=== PATIENT | male | born 1960 | race Caucasian/White ===

== ENCOUNTER → 2021-12-26 08:43 | Outpatient (CLI) | payer OTHER, SELFPAY ==
[2021-12-26 09:26] LABS: Add Manual Diff / Slide Review NO; Basophils Absolute Auto 100 /uL (0-100); Basophils Percent Auto 1.3 % (0-2); Eosinophils Absolute Auto 100 /uL (0-450); Eosinophils Percent Auto 0.7 % (2-4); Hematocrit 43.3 % (41-53); Hemoglobin 14.7 g/dL (13.5-17.5); Lymphocytes Absolute Auto 1400 /uL (1100-4500); Lymphocytes Percent Auto 21.1 % (25-40); Mean Corpuscular Hemoglobin 34.6 PG (26-34); Mean Corpuscular Volume 101.7 fL (80-100); Monocytes Absolute Auto 600 /uL (0-900); Monocytes Percent Auto 8.2 % (3-14); Neutrophils Absolute Auto 4700 /uL (1500-7000); Neutrophils Percent Auto 68.7 % (50-75); Platelet Count 235 X10^3/uL (150-400); Red Blood Cell Count 4.26 X10^6/uL (4.5-5.9); Red Cell Distribution Width 14.1 % (11.6-14.8); White Blood Cell Count 6.8 X10^3/uL (4.5-11.0)
[2021-12-26 09:43] LABS: Hemoglobin A1C% w Est Avg Glu 5.1 % (4.0-6.0)
[2021-12-26 09:45] LABS: Alanine Aminotransferase 24 IU/L (<50); Albumin 4.4 g/dL (3.5-5.0); Albumin Globulin Ratio 1.3 (1.0-2.8); Alkaline Phosphatase 70 U/L (38-126); Aspartate Aminotransferase 26 IU/L (17-59); BUN Creatinine Ratio 18.4 (6-22); Bilirubin Total 0.6 mg/dL (0.2-1.3); Blood Urea Nitrogen 14 mg/dL (9-20); Calcium 8.9 mg/dL (8.4-10.2); Carbon Dioxide 29 mmol/L (22-32); Chloride 101 mmol/L (98-107); Cholesterol 187 mg/dL (140-199); Estimated Glomerular Filt Rate > 60 mL/min (>60); Globulin 3.5 g/dL (1.7-4.1); Glucose 115 mg/dL (80-110); HDL Cholesterol 61 mg/dL (40-60); HEMOLYSIS < 15 (0-50); LDL Cholesterol Calculated 117 mg/dL (<100); Potassium 4.2 mmol/L (3.4-5.1); Sodium 138 mmol/L (137-145); Total Protein 7.9 g/dL (6.3-8.2); Triglycerides 44 mg/dL (35-150)
[2021-12-26 10:10] LABS: Prostate Specific Antigen 0.291 ng/mL (0.10-4.00)
[2021-12-26 10:20] LABS: TSH w/ Reflex to FT4 0.98 uIU/mL (0.47-4.68)
== END ==
PROVIDERS: PCP Family Medicine; Referring Provider Family Medicine; Visit Provider Family Medicine
DX: F17.200 Nicotine dependence, unspecified, uncomplicated (principal); F32.A Depression, unspecified; R00.0 Tachycardia, unspecified; Z12.5 Encounter for screening for malignant neoplasm of prostate; Z13.1 Encounter for screening for diabetes mellitus; Z13.220 Encounter for screening for lipoid disorders
CPT/HCPCS: 36415; 80053; 80061; 83036; 84153; 84443; 85025

== ENCOUNTER → 2023-02-22 10:38 | Outpatient (CLI) | payer OTHER, SELFPAY ==
[2023-02-22 12:16] LABS: Add Manual Diff / Slide Review NO; Basophils Absolute Auto 100 /uL (0-100); Eosinophils Absolute Auto 100 /uL (0-450); Eosinophils Percent Auto 2.3 % (2-4); Hematocrit 42.6 % (41-53); Hemoglobin 14.4 g/dL (13.5-17.5); Lymphocytes Absolute Auto 1600 /uL (1100-4500); Lymphocytes Percent Auto 28.6 % (25-40); Mean Corpuscular HGB Conc 33.9 % (30-36); Mean Corpuscular Hemoglobin 34.9 PG (26-34); Monocytes Absolute Auto 500 /uL (0-900); Monocytes Percent Auto 8.5 % (3-14); Neutrophils Absolute Auto 3300 /uL (1500-7000); Neutrophils Percent Auto 59.6 % (50-75); Platelet Count 256 X10^3/uL (150-400); Red Blood Cell Count 4.13 X10^6/uL (4.5-5.9); Red Cell Distribution Width 13.9 % (11.6-14.8); White Blood Cell Count 5.6 X10^3/uL (4.5-11.0)
[2023-02-22 12:22] LABS: Alanine Aminotransferase 20 IU/L (<50); Albumin 4.3 g/dL (3.5-5.0); Albumin Globulin Ratio 1.3 (1.0-2.8); Alkaline Phosphatase 67 U/L (38-126); Aspartate Aminotransferase 28 IU/L (17-59); BUN Creatinine Ratio 23.1 (6-22); Bilirubin Total 0.9 mg/dL (0.2-1.3); Blood Urea Nitrogen 18 mg/dL (9-20); Calcium 9.4 mg/dL (8.4-10.2); Carbon Dioxide 26 mmol/L (22-32); Chloride 103 mmol/L (98-107); Estimated Glomerular Filt Rate > 60 mL/min (>60); Globulin 3.3 g/dL (1.7-4.1); Glucose 104 mg/dL (80-110); HEMOLYSIS < 15 (0-50); Sodium 135 mmol/L (137-145); Total Protein 7.6 g/dL (6.3-8.2)
== END ==
PROVIDERS: PCP Family Medicine; Referring Provider Family Medicine; Visit Provider Family Medicine
DX: K62.5 Hemorrhage of anus and rectum (principal)
CPT/HCPCS: 36415; 80053; 85025

== ENCOUNTER 2023-03-26 07:36 | Day surgery (SDC) | payer OTHER, SELFPAY ==
--- NOTE | 2023-03-26 | PATH_ITS ---
[facility] Accession Number: [id number] No. of containers..02 Tissue . 01 Material submitted: . PART A: colon - DESCENDING POLYP PART B: colon - ASCENDING POLYPS . 01 Diagnosis: A. Descending Colon Polyp, Biopsy: Tubular adenoma. . B. Ascending Colon Polyps, Biopsy: Tubular adenomas. MRV 03/29/2023 1344 Local . 01 Electronically signed: . Wendy Wahl MD, Pathologist NPI- [id number] . 01 Gross description: . Part A: DESCENDING POLYP: Received in formalin is 1 fragment(s) of silva, soft tissue measuring 0.3 x 0.2 x 0.1 cm submitted entirely in 1 cassette(s) Part B: ASCENDING POLYPS: Received in formalin is multiple fragment(s) of silva, soft tissue measuring 0.8 x 0.4 x 0.1 cm in aggregate submitted entirely in 1 cassette(s) /AAY 03/27/2023 0623 Local . 01 Pathologist provided ICD-10: D12.4, D12.2 . 01 CPT . 483860, 575376 Specimen Comment: A courtesy copy of this report has been sent to [phone] Performed at: 01 [facility] [address] [place] [address] [address] [facility], [place], [place] [id number] MD Charly Acosta MD Phone: [phone]
[2023-03-26 08:19] VITALS: BP 121/74; PULSE 59; RESP 18; TEMP 36.1; O2SAT 97
[2023-03-26] MEDS: LACTATED RINGERS 1,000 ML 42 ML IV (08:27)
--- NOTE | 2023-03-26 08:46 | PM.HP.1 ---
History of Present Illness History of Present Illness Date Patient Seen: 03/26/23 Time Patient Seen: 08:47 Chief complaint: Screening Colonoscopy Narrative: First colonoscopy, no symptoms or family history concerning for colon cancer. He does have bright red blood per rectum in his chart. [facility] Medical History Bright red blood per rectum YNES (generalized anxiety disorder) Elevated MCV Hyperlipidemia Headache (~1989) Carpal tunnel syndrome (~2002) Chicken pox (~1994) Tinnitus (~2016) Alcohol use disorder Tobacco dependence Depression Surgical History Anesthesia History of hernia repair (~1970) Family History Father Dementia Mother Cancer Brother No problems noted. Brother History of heart disease Sister History of heart disease Social History Smoking Status: Current every day smoker alcohol intake: current Meds Home Medications and Allergies Home Medications Medication Instructions Recorded Confirmed Type ascorbic acid (vitamin C) 500 mg 1,000 mg PO QDAY ##0 03/15/17 03/26/23 History tablet cholecalciferol (vitamin D3) 125 5,000 unit PO DAILY 12/26/21 03/26/23 History mcg (5,000 unit) tablet (Vitamin D3) prednisolone sodium phosphate 1 % drp EYE-LEFT BID 12/26/21 03/21/23 History eye drops vitamin B complex (B 1 tab PO DAILY 12/26/21 03/26/23 History Complex-Vitamin B12 tablet) ciprofloxacin 0.3 %-dexamethasone 4 drp EAR-LEFT BID 7 days #7.5 mL 03/21/23 03/26/23 Rx 0.1 % ear drops,suspension Allergies Allergy/AdvReac Type Severity Reaction Status Date / Time No Known Drug Allergies Allergy Verified 03/26/23 08:11 Exam Vital Signs (past 8 hours): - 03/26/23 08:19 Temperature 97.0 F L Pulse Rate 59 L Respiratory Rate 18 Blood Pressure 121/74 Pulse Oximetry 97 Oxygen Delivery Method Room Air Oxygen Delivery Method Room Air Const General: cooperative, healthy appearing and comfortable [facility] Head: normocephalic and atraumatic Eyes General: appearance normal, both eyes and all related structures Sclera: sclerae normal Neck Neck: trachea midline Resp Effort & Inspection: normal respiratory effort and able to speak in complete sentences Skin General: elasticity normal and turgor normal Neuro General: patient alert, patient awake and patient oriented x3 Cognition: normal cognition Psych Mental Status: mental status grossly normal Affect: normal affect Judgment: judgment good Assessment & Plan Assessment & Plan narrative: Colon cancer screening with reference to bright red blood per rectum in chart. Plan: Colonoscopy with anesthesia Time Spent With Patient Time with patient: less than 30 minutes
--- NOTE | 2023-03-26 09:30 | PM.OP.COLON ---
Operative Date/Time/Diagnoses Date of procedure: 03/26/23 Time of procedure: 09:30 Pre-op diagnosis: History of bright red blood per rectum Post-op diagnosis: same Procedure & Clinicians Study performed: Colonoscopy with cold snare polypectomy and cold forceps polypectomy using anesthesia Same procedure as scheduled: Yes Indications: History of bright red blood per rectum Surgeon: Aicha Hanna Procedure Notes Procedure in detail: Preop diagnosis: Colon cancer screening, history of bright red blood per rectum Postop diagnosis: Same Operative procedure: Colonoscopy with cold snare polypectomy and cold forceps polypectomy under anesthesia. Surgeon: Vanesa Hanna MD Findings: 3 ascending colon polyps, 2 are 2 mm and sessile. The 3rd was 5 mm and sessile all taken with cold snare. Single polyp in the descending colon, 2 mm in size taken with cold forceps. Grade 3 hemorrhoids Procedure: Patient placed in lateral position. Rectal exam performed showing normal tone no masses. Scope was inserted into the rectum and advanced to ileocecal valve with minimal difficulty. Insufflation extraction scope and the above findings. Retroflex was included in the rectum. Impression: Ascending colon had total of 3 adenomatous polyps sizes 2 mm to 5 mm taken with cold snare. Descending colon had a single 2 mm sessile polyp taken with cold forceps. Grade 3 internal hemorrhoids I suspect is the source of his rectal bleeding. Plan: Repeat colonoscopy in 3 years due to the number of polyps identified in the ascending colon. High-fiber diet and medical management of hemorrhoids Findings: internal hemorrhoids and polyp(s) Post-procedure Recommendations: Colonoscopy in 3 years Follow up: as needed Disposition: PACU
[2023-03-26 09:33] VITALS: BP 102/64; PULSE 65; RESP 16; TEMP 36.2; O2SAT 98
[2023-03-26 09:38] VITALS: BP 114/67; PULSE 69; RESP 16; O2SAT 96
[2023-03-26 09:43] VITALS: BP 103/68; PULSE 75; RESP 16; TEMP 36.3; O2SAT 98
[2023-03-26 09:48] VITALS: BP 111/73; PULSE 87; RESP 16; O2SAT 98
== END 2023-03-26 10:03 | disposition home or self-care (01) ==
PROVIDERS: PCP Family Medicine; Referring Provider Surgery; Visit Provider Surgery
PROC: 0DJD8ZZ Inspection of Lower Intestinal Tract, Via Natural or Artificial Opening Endoscopic (ICD-10-PCS; CPT 45378; principal; 2023-03-26 08:45)
DX: Z12.11 Encounter for screening for malignant neoplasm of colon (principal); K64.2 Third degree hemorrhoids; D12.4 Benign neoplasm of descending colon; D12.2 Benign neoplasm of ascending colon
CPT/HCPCS: 45385; 45380; J2704

== ENCOUNTER → 2023-05-28 09:01 | Outpatient (CLI) | payer OTHER, SELFPAY ==
[2023-05-28 10:59] LABS: C-Reactive Protein Quant < 0.5 mg/dL (<1.0)
[2023-05-29 05:41] LABS: RPR Screen Non Reactive (Non Reactive)
[2023-05-31 10:30] LABS: B. henselae IgG Negative titer (Neg:<1:320); B. henselae IgM Negative titer (Neg:<1:100); B. quintana IgG Negative titer (Neg:<1:320); B. quintana IgM Negative titer (Neg:<1:100)
[2023-06-01 13:11] LABS: Antimyeloperoxidase Antibodies <0.2 units (0.0-0.9); Antiproteinase 3 Antibodies <0.2 units (0.0-0.9); Cytoplasmic C-ANCA <1:20 titer (Neg:<1:20); Perinuclear P-ANCA <1:20 titer (Neg:<1:20)
[2023-06-02 12:43] LABS: QuantiFERON Mitogen Value >10.00 IU/mL (.); QuantiFERON Nil Value 0.03 IU/mL (.); QuantiFERON TB Gold Plus Negative (Negative); QuantiFERON TB1 Ag Value 0.04 IU/mL (.); QuantiFERON TB2 Ag Value 0.03 IU/mL (.)
[2023-06-03 20:12] LABS: ANA Screen, IFA Negative (.)
[2023-06-03 20:36] LABS: 18 kD IgG Band Absent (.); 23 kD IgG Band Absent (.); 28 kD IgG Band Absent (.); 30 kD IgG Band Absent (.); 39 kD IgG Band Absent (.); 41 kD IgG Bands Absent (.); 45 kD IgG Band Absent (.); 58 kD IgG Band Absent (.); 66 kD IgG Band Absent (.); IgG P93 AB Absent (.); IgM P23 AB Absent (.); IgM P39 AB Absent (.); IgM P41 AB Absent (.); Lyme IgG Line Blot Interpretat Negative (.); Lyme IgM Line Blot Interpretat Negative (.)
[2023-06-08 12:25] LABS: HLA B27 Negative (.)
== END ==
PROVIDERS: PCP Family Medicine; Referring Provider Ophthalmology; Visit Provider Ophthalmology
DX: H30.93 Unspecified chorioretinal inflammation, bilateral (principal)
CPT/HCPCS: 36415; 81374; 86038; 86140; 86256; 86480; 86592; 86611; 86617